=== PATIENT | female | born 1990 | race Caucasian/White ===

== ENCOUNTER 2019-02-04 19:57 | Emergency (ER) | payer MEDICAID, OTHER ==
[~2019-02-04] VITALS: Ht 175.3 cm; Wt 79.4 kg
[2019-02-04 20:00] VITALS: BP 108/80
[2019-02-04] MEDS ORDERED: IBUPROFEN 400 MG TABLET ONE (21:00)
[2019-02-04] MEDS: IBUPROFEN 400 MG TABLET PO ONE (21:02)
== END 2019-02-04 21:26 | disposition home or self-care (01) ==
LOC: ER 20:01
DX: J06.9 Acute upper respiratory infection, unspecified (principal); J45.909 Unspecified asthma, uncomplicated; Z88.0 Allergy status to penicillin
CPT/HCPCS: 71045-TC

== ENCOUNTER 2019-02-26 21:08 | Emergency (ER) | payer MEDICAID ==
[~2019-02-26] VITALS: Ht 175.3 cm; Wt 72.6 kg
--- NOTE | 2019-02-26 21:10 | NUR ---
called pt in wr. no one responded. will follow up
[2019-02-26 21:14] VITALS: BP 113/74
== END 2019-02-26 21:29 | disposition home or self-care (01) ==
LOC: ER 21:09
DX: J45.909 Unspecified asthma, uncomplicated (principal); Z88.0 Allergy status to penicillin; Z60.2 Problems related to living alone

== ENCOUNTER 2019-03-21 04:35 | Emergency (ER) | payer MEDICAID ==
[~2019-03-21] VITALS: Ht 175.3 cm; Wt 78.5 kg
--- NOTE | 2019-03-21 04:56 | NUR ---
Note luzyamila in EDM - 03/21/19 at 0458 by VANI PATIENT CAME TO ER BED 9 BY SELF C/O COUGHING FOR 1x WEEK. PATIENT STATES THAT SHE HAS A FEVER AND COUGHING WITH YELLOW-OLD SUTUM, AAOX4 .NO SOB. BREATHIN EVENLY AND UNLABORED.CONNECTED NO PAIN
--- NOTE | 2019-03-21 04:58 | NUR ---
PATIENT CAME TO ER BED 9 BY SELF C/O COUGHING FOR 1x WEEK. PATIENT STATES THAT SHE HAS A FEVER AND COUGHING WITH YELLOW-OLD SUTUM, STATES THAT SHE HAS GENERALIZED BODY PAIN. AAOX4 .NO SOB. BREATHIN EVENLY AND UNLABORED.CONNECTED TO MONITOR. NO FEVER
--- NOTE | 2019-03-21 05:00 | NUR ---
SEEN AND EXAMINED BY
--- NOTE | 2019-03-21 05:44 | NUR ---
RE-EVALUATED BY
--- NOTE | 2019-03-21 05:54 | NUR ---
Patient discharged to home in stable condition. Written and verbal after care instructions given. Patient verbalizes understanding of instruction.
[2019-03-21 05:55] VITALS: BP 122/73
== END 2019-03-21 05:55 | disposition home or self-care (01) ==
LOC: ER 04:37
DX: J20.9 Acute bronchitis, unspecified (principal); J45.909 Unspecified asthma, uncomplicated; Z88.0 Allergy status to penicillin; Z60.2 Problems related to living alone
CPT/HCPCS: 71045-TC

== ENCOUNTER 2019-05-16 14:00 | Emergency (ER) | payer MEDICAID, OTHER ==
[~2019-05-16] VITALS: Ht 172.7 cm; Wt 63.5 kg
[2019-05-16 14:06] VITALS: BP 132/74
== END 2019-05-16 14:17 | disposition home or self-care (01) ==
LOC: ER 14:10
DX: L03.312 Cellulitis of back [any part except buttock and flank] (principal); Z76.0 Encounter for issue of repeat prescription; J45.909 Unspecified asthma, uncomplicated; Z88.0 Allergy status to penicillin; Z60.2 Problems related to living alone

== ENCOUNTER 2019-08-23 13:07 | Emergency (ER) | payer OTHER ==
[~2019-08-23] VITALS: Ht 175.3 cm; Wt 72.6 kg
--- NOTE | 2019-08-23 13:20 | NUR ---
TO ER BED 11 AWAITING MD DOWNS
[2019-08-23 13:33] VITALS: BP 126/76
== END 2019-08-23 13:34 | disposition home or self-care (01) ==
LOC: ER 13:10
DX: H10.212 Acute toxic conjunctivitis, left eye (principal); J45.909 Unspecified asthma, uncomplicated; Z88.0 Allergy status to penicillin; Z60.2 Problems related to living alone

== ENCOUNTER 2020-07-08 03:52 | Emergency (ER) | payer OTHER ==
[~2020-07-08] VITALS: Ht 175.3 cm; Wt 75.7 kg
[2020-07-08 04:50] VITALS: BP 110/72
[2020-07-08] MEDS ORDERED: CLIN300C12 PO (05:05)
== END 2020-07-08 05:15 | disposition home or self-care (01) ==
LOC: ER 03:58
DX: H61.001 Unspecified perichondritis of right external ear (principal); J45.909 Unspecified asthma, uncomplicated; Z88.0 Allergy status to penicillin; Z60.2 Problems related to living alone; Z79.899 Other long term (current) drug therapy

== ENCOUNTER 2020-09-17 22:51 | Emergency (ER) | payer OTHER ==
[~2020-09-17] VITALS: Ht 175.3 cm; Wt 65.8 kg
[~2020-09-17 22:51] MED LIST: CLIN300C12 PO
--- NOTE | 2020-09-17 22:58 | NUR ---
PT AAOX4. BIBSELF C/O RLQ PAIN X TODAY. AWAITING ER MD FOR EVAL AND ORDERS.
[2020-09-17] MEDS ORDERED: IBUPROFEN 400 MG TABLET PO ONE (23:30)
[2020-09-17] MEDS ORDERED: IBUPROFEN 600 MG TABLET ONE (23:33)
[2020-09-17] MEDS ORDERED: IBUPROFEN 400 MG TABLET ONE (23:34)
--- NOTE | 2020-09-18 00:28 | NUR ---
ULTRASOUND AT BEDSIDE
--- NOTE | 2020-09-18 01:49 | NUR ---
CALLED [facility] FOR REPORT
[2020-09-18 02:52] VITALS: BP 135/72
--- NOTE | 2020-09-18 02:52 | NUR ---
Patient discharged to home in stable condition. Written and verbal after care instructions given. Patient verbalizes understanding of instruction.Pt ambulatory with a steady gait
== END 2020-09-18 02:52 | disposition home or self-care (01) ==
LOC: ER 22:52
DX: N83.202 Unspecified ovarian cyst, left side (principal); J45.909 Unspecified asthma, uncomplicated; Z88.0 Allergy status to penicillin; Z60.2 Problems related to living alone
CPT/HCPCS: 76856-TC; 84703-TC

== ENCOUNTER 2020-09-24 10:37 | Emergency (ER) | payer OTHER ==
[~2020-09-24] VITALS: Ht 175.3 cm; Wt 70.3 kg
[2020-09-24 10:46] VITALS: BP 129/70
[2020-09-24] MEDS ORDERED: CLIN300C12 PO (11:41)
[2020-09-24] MEDS ORDERED: SULF1TAB48 PO (11:41)
== END 2020-09-24 11:52 | disposition home or self-care (01) ==
LOC: ER 10:37
DX: I80.3 Phlebitis and thrombophlebitis of lower extremities, unspecified (principal); J45.909 Unspecified asthma, uncomplicated; Z88.0 Allergy status to penicillin; Z60.2 Problems related to living alone

== ENCOUNTER 2020-10-01 16:42 | Emergency (ER) | payer OTHER ==
[~2020-10-01] VITALS: Ht 175.3 cm; Wt 68.0 kg
[~2020-10-01 16:42] MED LIST changes: +SULF1TAB48 PO
--- NOTE | 2020-10-01 17:00 | NUR ---
The patient bibs for c/o abd pain x 3 days, recently Dx UTI, almost finish with oral antibiotic /10 pain scale,-N/V/D. Abdomen soft and non-distended. Will continue to monitor the patient
[2020-10-01 17:40] LABS: BASOPHILS % (AUTO) 0.5 % (0.0-2.0); EOSINOPHILS % (AUTO) 3.1 % (0.0-6.0); HEMATOCRIT 37 % (33-45); HEMOGLOBIN 12.3 g/dL (11.5-14.8); LYMPHOCYTES % (AUTO) 41.1 % (20.0-44.0); MEAN CORPUSCULAR HGB CONC 33 g/dl (31.0-36.0); MEAN CORPUSCULAR VOLUME 91 fL (82-100); MONOCYTES # (AUTO) 0.4 K/uL (0.1-1.30); MONOCYTES % (AUTO) 7.4 % (2.0-12.0); NEUTROPHILS # (AUTO) 2.3 K/uL (1.8-8.9); NEUTROPHILS % (AUTO) 47.9 % (43.0-81.0); PLATELET COUNT (AUTO) 239 K/uL (150-450); RED BLOOD CELL COUNT(AUTO) 4.08 MIL/uL (4.0-5.2); WHITE BLOOD COUNT (AUTO) 4.9 K/uL (4.3-11.0)
[2020-10-01 17:42] LABS: BILIRUBIN,URINE SMALL (NEGATIVE); COLOR,URINE YELLOW (YELLOW); LEUKOCYTE ESTERASE ,URINE NEGATIVE (NEGATIVE); NITRITE, URINE NEGATIVE (NEGATIVE); PROTEIN,URINE 30 mg/dl (NEGATIVE); UGLUCOSE NEGATIVE (NEGATIVE); UROBILINOGEN,URINE 0.2 EU/dL (0.2)
[2020-10-01 17:44] LABS: CALCIUM, SERUM 8.8 mg/dL (8.5-10.1); CREATININE 0.7 mg/dL (0.6-1.3)
[2020-10-01 17:49] LABS: CALCIUM OXALATE CRYSTALS,UR Few /HPF (None Seen); MUCUS,URINE Many /LPF (None Seen); URIC ACID CRYSTALS,URINE Moderate /HPF (None Seen)
[2020-10-01 17:50] LABS: BACTERIA,URINE 1+ /HPF (None Seen); RBC,URINE 0-2 /HPF (0-2); SQUAMOUS EPITHELIAL CELL,UR Moderate /HPF (None Seen)
--- NOTE | 2020-10-01 18:45 | NUR ---
wet mount swab sent to the lab
--- NOTE | 2020-10-01 19:50 | NUR ---
urine collected and sent to the lab.
[2020-10-01 19:59] VITALS: BP 113/79
--- NOTE | 2020-10-01 20:00 | NUR ---
Patient discharged to home in stable condition. Written and verbal after care instructions given. Patient verbalizes understanding of instruction.
== END 2020-10-01 20:00 | disposition home or self-care (01) ==
LOC: ER 16:51
DX: R10.2 Pelvic and perineal pain (principal); F15.90 Other stimulant use, unspecified, uncomplicated; J45.909 Unspecified asthma, uncomplicated; Z88.0 Allergy status to penicillin; Z60.2 Problems related to living alone
CPT/HCPCS: 36415; 76856-TC; 80048-TC; 81001; 84703-TC; 85025-TC; 87210-TC

== ENCOUNTER 2021-02-05 20:52 | Emergency (ER) | payer OTHER ==
[~2021-02-05] VITALS: Ht 175.3 cm; Wt 68.0 kg
[2021-02-05 22:27] VITALS: BP 125/82
--- NOTE | 2021-02-05 22:32 | NUR ---
PT BIBSELF C/O HEADACHE AND "A RUPTURED OVARIAN CYST". PT AAOX4 BREATHING EVENLY AND UNLABORED. PT ATTACHED TO MONITOR AND POX. [employer]LLER TENDER AT BEDSIDE FOR EVALULATION. PT GIVEN BLANKET AND CALL LIGHT WITHIN REACH
--- NOTE | 2021-02-05 22:58 | NUR ---
us at bedside
--- NOTE | 2021-02-05 23:01 | NUR ---
PT REFUSED US, AWARE
--- NOTE | 2021-02-05 23:01 | NUR ---
Cheryl bazan in [facility] - 02/05/21 at 2301 by SOURAV pt refused us
--- NOTE | 2021-02-05 23:09 | NUR ---
LAB AT BEDSIDE
--- NOTE | 2021-02-05 23:30 | NUR ---
RETURNED FROM CT
[2021-02-05 23:33] LABS: BILIRUBIN,URINE Negative (NEGATIVE); COLOR,URINE YELLOW (YELLOW); LEUKOCYTE ESTERASE ,URINE Negative (NEGATIVE); NITRITE, URINE Negative (NEGATIVE); PROTEIN,URINE Negative (NEGATIVE); UGLUCOSE Negative (NEGATIVE); UROBILINOGEN,URINE 0.2 EU/dL (0.2)
[2021-02-06] MEDS ORDERED: FLUCONAZOLE (100 MG) 100 MG TABLET PO ONE (00:30)
[2021-02-06] MEDS ORDERED: FLUCONAZOLE (100 MG) 100 MG TABLET ONE (00:34)
--- NOTE | 2021-02-06 00:41 | NUR ---
Patient discharged to home in stable condition. Written and verbal after care instructions given. Patient verbalizes understanding of instruction. Pt ambulated out of ED. VSS.
== END 2021-02-06 00:42 | disposition home or self-care (01) ==
LOC: ER 20:57
DX: R10.30 Lower abdominal pain, unspecified (principal); B37.9 Candidiasis, unspecified; R30.0 Dysuria; J45.909 Unspecified asthma, uncomplicated; Z88.0 Allergy status to penicillin
CPT/HCPCS: 84703-TC

== ENCOUNTER 2021-06-20 18:55 | Emergency (ER) | payer OTHER ==
[~2021-06-20] VITALS: Ht 175.3 cm; Wt 74.8 kg
[2021-06-20 19:09] VITALS: BP 148/95
--- NOTE | 2021-06-20 19:45 | NUR ---
PT IS WAS ON CHAIR VINCENT PROVIDER CAME FOR EVAL. PT HAVE LEFT WITHOUT BEING SEEN.
== END 2021-06-20 19:46 | disposition left against medical advice (07) ==
LOC: ER 18:57
DX: Z53.21 Procedure and treatment not carried out due to patient leaving prior to being seen by health care provider (principal)